=== PATIENT | male | born 1985 | race Caucasian/White ===

== ENCOUNTER 2020-07-21 08:16 | Outpatient (RCR) | payer OTHER, SELFPAY ==
[2016-05-08 19:04] VITALS: BMI 23.6
== END 2020-07-21 23:59 ==
LOC: IMMUN 08:16
PROVIDERS: PCP Family Medicine; Visit Provider Family Medicine
DX: Z23 Encounter for immunization (principal)
CPT/HCPCS: 0011A; 0012A; 91301

== ENCOUNTER → 2020-12-30 08:42 | Outpatient (CLI) | payer OTHER, SELFPAY | PROVIDERS: PCP Family Medicine; Visit Provider Family Medicine | DX: Z20.828 Contact with and (suspected) exposure to other viral communicable diseases (principal) | CPT/HCPCS: 87635; U0005; U0003 ==

== ENCOUNTER 2021-08-03 15:35 | Outpatient (CLI) | payer OTHER, SELFPAY ==
--- NOTE | 2021-08-03 15:39 | RAD_ITS ---
STUDY: X-RAY - LEFT HAND REASON FOR EXAM: Male, 36 years old. Fell on hand while jumping on trampoline 2 days ago TECHNIQUE: 3 view(s) of the hand. COMPARISON: None. FINDINGS: Normal radiocarpal articulation. Normal distal radioulnar joint. Normal visualized carpal bones. Normal carpal articulations Normal carpometacarpal articulation of the thumb. Normal second through fifth carpometacarpal joints. Normal first through fourth metacarpi. There is a minimally displaced oblique fractures through the midshaft of the fifth metacarpal without angulation. Normal metacarpophalangeal joint of the thumb. Normal interphalangeal joint of the thumb. Normal proximal and distal phalanges of the thumb. Normal metacarpophalangeal joints of the second through fifth fingers. Normal proximal and distal interphalangeal joints of the second through fifth fingers. Normal phalanges of the second through fifth fingers. There is soft tissue swelling over the medial hand. RAD/Hand Min 3 Views IMPRESSION: Mildly displaced fracture of the fifth metacarpal Electronically Signed: Dax Mathews DO at 16:55 EDT ,
== END 2021-08-03 23:59 | disposition home or self-care (01) ==
LOC: MTRAD 15:37
PROVIDERS: PCP Family Medicine; Referring Provider Family Medicine; Visit Provider Family Medicine
DX: M79.642 Pain in left hand (principal)
CPT/HCPCS: 73130

== ENCOUNTER 2023-06-27 05:52 | Day surgery (SDC) | payer OTHER, SELFPAY ==
[2023-06-27] VITALS (10 sets, daily range): BP systolic 124–161; BP diastolic 71–110; PULSE 79–116; RESP 16–18; TEMP 36.7–37.3; O2SAT 92–97; BMI 25.6
--- OUTSIDE RECORDS SUMMARY | 2023-06-27 05:57 | XMS RPT_ITS | CCD ---
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 from [facility].3.Open the email and access the invitation link: Accept Invitation to [facility]4.Fill in the required he to create your account. Sign into [email or web address] with your username and password that you created in the above steps to stay up to date. You can then view a summary of results, a summary of your visits, and the ability to download your summaries to your computer or send the information securely to a physician. Remember that your healthcare information is confidential, so carefully consider who you will allow to register on the [facility] Patient Portal for access to your information. You can also access the [facility] Patient Portal on the [employer] parviz. Simply click on Health Records under Health Data and then click on the [employer] logo. HOW TO SAFELY DISPOSE OF PRESCRIPTION MEDICATIONS Please use one of the following methods to safely dispose of your unused medications. 1.Use a drug disposal kit: the drug disposal pouch allows you to safely discard your old and unused drugs. Ask your nurse to give you one when you are discharged.2.Visit a local take-back location: Many local pharmacies and police departments have programs that collect old and unwanted prescription drugs. Call your local pharmacy or go to http://bit.Hootsuite/1K2Tr3m to find one close to you.3.Make use of household items: Use cat litter or old coffee grounds to dispose medications if other options are not available. Mix your drugs with these household products, seal them in an airtight container and throw it into the garbage. Call [facility]: [phone] to be sure your drugs can be disposed of in this way. Some medicines may require a different approach.4.Never flush your medications down the toilet. IF YOU HAVE BEEN PRESCRIBED AN OPIOIDS FOR PAIN If you have been prescribed an opioid (such as hydrocodone, oxycodone or morphine), it is critical to understand the possible side effects and risks of opioid pain medications. Even when taken as directed, opioids can have several side effects including: Tolerance, meaning you might need to take more of a medication for the same pain relief. Nausea, vomiting and/or constipation. Sleepiness, dizziness, dry mouth, confusion, depression or itching. Physical dependence, meaning you have withdrawal symptoms when a medication is stopped ? this can develop within a few days. KNOW YOUR RESPONSIBILITIES It is important to know exactly how much and how often to take the opioid pain medications you are prescribed. Never take opioids in higher amounts or more often than prescribed. Do not combine opioids with alcohol or other drugs that cause drowsiness, such as benzodiazepines, also known as benzos, including diazepam and alprazolam, muscle relaxants or sleep aids. Never sell or share prescription opioids. This is illegal. Store opioids in a secure place and out of reach of others (including children, family, friends and visitors). The last page(s) of this document has been signed and retained as a CHART COPY Signatures Patient Education Materials Ankle Fracture Medication Leaflets acetaminophen and oxycodone My discharge plan and instructions have been reviewed and explained to me and I,TATIANNA OLIVER understand my current condition and have read and understand these discharge instructions. I have received a written copy of the plan/instructions. If I have questions, I am aware that I should contact my doctor. 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 The ankle mortise and talar dome appear intact. There is lateral soft tissue swelling. An ankle joint effusion is noted. IMPRESSION: Distal fibular fracture Interpreted by: Mj Ferrer Preliminary Report By: Mj Ferrer Electronically signed By Mj Ferrer Dictated Date: 06/13/2023 10:42:15 AM Prelim Date: 06/13/2023 10:43:31 AM Sign Date: 06/13/2023 10:43:31 AM Ordering Provider: DONALD REYNOLDS [facility] Evaluation + Plan note Note Date & Type Note Facility Evaluation + Plan note Future Appointments [facility] Hospital course Narrative Note Date & Type Note Facility Hospital course Narrative No data available for this section [facility] Hospital Discharge instructions Note Date & Type Note Facility Hospital Discharge instructions No data available for this section [facility] Progress note Note Date & Type Note Facility Progress note No data available for this section [facility] Summary Purpose Family History No Family History Records Found Advance Directives No Advanced Directives Records Found Additional Source Comments Care Team (unrecognized sect ion and content) Personnel Name: NEPTALI MOURA DO Address: [address] [place] [address] Care Team Personnel Name: NEPTALI MOURA DO Member Role: Primary Care Physician Address: Address: [address] [place] [address] Care Team Related Persons Name: RACHEL RODRIGUEZ Care Team (unrecognized sect ion and content) Care Team Personnel Name: NEPTALI MOURA DO Member Role: Primary Care Physician Address: Address: [address] [place] [address] [place] [address]- Care Team Related Persons Name: RACHEL RODRIGUEZ (unrecognized sect ion and content) No Status Records Found INFORMATION SOURCE (unrecogn ized section and content) FOR RECORDS PERTAINING TO PATIENTS WHO ARE OR HAVE BEEN ENROLLED IN A CHEMICAL DEPENDENCY/SUBSTANCEABUSE PROGRAM, SOME INFORMATION MAY BE OMITTED. This clinical summary was aggregated from multiple sources. Caution should be exercised in using it in the provision of clinical care. This summary normalizes information from multiple sources, and as a consequence, information in this document may materially change the coding, format and clinical context of patient data. In addition, data may be omitted in some cases. CLINICAL DECISIONS SHOULD BE BASED ON THE PRIMARY CLINICAL RECORDS. [employer] provides no warranty or guarantee of the accuracy or completeness of information in this document.
[2023-06-27] MEDS: Lactated Ringers 1,000 ML 15 ML IV (06:35)
--- NOTE | 2023-06-27 07:40 | RAD_ITS ---
STUDY: X-RAY - LEFT ANKLE REASON FOR EXAM: Male, 38 years old. FX TECHNIQUE: 2 view(s) of the ankle. COMPARISON: None. FINDINGS: Intraoperative imaging provided for open reduction and internal fixation of the distal fibular fracture utilizing screw and sideplate fixation device. There is satisfactory reduction. RAD/Ankle 2 Views IMPRESSION: Intraoperative fluoroscopic services provided for ORIF of the distal fibular fracture. Electronically Signed: Rafael Metcalf MD at 9:06 EST ,
[2023-06-27] MEDS: Cefazolin 2 GM in 0.9% Normal Saline (100mL Bag) 100 ML IV (07:50)
--- NOTE | 2023-06-27 08:42 | PCM.OPRPT ---
Report of Operation Date of Procedure: 06/27/23 Pre-Operative Diagnosis: Ty B fracture left fibula Post-Operative Diagnosis: same Surgery/Procedure Performed:: ORIF Left fibula Surgeon: James Brito printer machine: Manjeet Mendez Type of Anesthesia: General/Regional Anesthesiologist: Bishop Bright Admbecki VTE Documentation VTE Present on Admission: No VTE Mechan Device Prophylaxis: SCD's VTE Pharm Prophylaxis ordered?: Yes
[2023-06-27] MEDS: Oxycodone/Apap 5/325 Tablet PO (10:15)
== END 2023-06-27 10:49 | disposition home or self-care (01) ==
LOC: SDC 05:57 → AC 05:57
PROVIDERS: PCP Family Medicine; Referring Provider Orthopaedic Surgery; Visit Provider Orthopaedic Surgery
PROC: (CPT 27792; principal; 2023-06-27 07:10)
DX: S82.62XA Displaced fracture of lateral malleolus of left fibula, initial encounter for closed fracture (principal); S93.432A Sprain of tibiofibular ligament of left ankle, initial encounter; M25.572 Pain in left ankle and joints of left foot; W01.0XXA Fall on same level from slipping, tripping and stumbling without subsequent striking against object, initial encounter; Y99.0 Civilian activity done for income or pay; Y92.213 High school as the place of occurrence of the external cause; K21.9 Gastro-esophageal reflux disease without esophagitis
CPT/HCPCS: 27792; 01480; 73600; 76000; C1713; J7120; J2405